=== PATIENT | male | born 1940 | race Caucasian/White ===

== ENCOUNTER → 2016-07-20 | Outpatient (CLI) | payer BC ==
[~2016-07-20] MED LIST: AMR2 PO; CYAN100020 PO; FERR324T PO; GLC/500 PO; Lisinopril PO; Pravastatin PO
[2016-07-20 13:35] LABS: BASO % 0.4 %; BASO ABS # 0.02 K/uL (0-0.2); COMPLETE YES; EOS % 3.5 %; HEMATOCRIT 35.9 % (42-52); IG% 0.2 %; LYMPH ABS # 1.52 K/uL (1.2-3.4); MEAN CELL VOLUME 92.1 fL (80-100); MEAN CORPUSCULAR HGB CONC 33.7 g/dl (32-36); MONO % 8.1 %; NEUT % 59.8 %; PLATELET COUNT 245 K/uL (130-400); WHITE BLOOD COUNT 5.43 K/uL (4.8-10.8)
[2016-07-20 13:58] LABS: BLOOD UREA NITROGEN 19 mg/dl (7-18); GLUCOSE 122 mg/dl (70-99)
[2016-07-20 13:59] LABS: ALT/SGPT 15 U/L (12-78); BUN/CREATININE RATIO 15.5 (10-20); CALCIUM 9.3 mg/dl (8.5-10.1); CARBON DIOXIDE 25 mmol/L (21-32); CHLORIDE 107 mmol/L (98-107); POTASSIUM 4.5 mmol/L (3.5-5.1); SODIUM 141 mmol/L (136-145)
[2016-07-20 14:14] LABS: ESTIMATED AVERAGE GLUCOSE 157 mg/dl; HA1C FLAG Normal (Normal)
[2016-07-20 14:22] LABS: CHOLESTEROL/HDL RATIO 2.2; PROSTATE SPECIFIC ANTIGEN 4.45 ng/ml (0.000-4.000)
[2016-07-20 14:35] LABS: ALB/GLOB RATIO 1.4 (0.9-2); ALKALINE PHOSPHATASE 56 U/L (45-117); AST/SGOT 69 U/L (15-37); IMMUNOGLOBULN M 23.4 mg/dL (40-230)
--- NOTE | 2016-07-24 10:29 | CODING QUERY MEDICAL NECESSITY ---
SUPPORTING DIAGNOSIS NEEDED A supporting diagnosis is required for the test/procedure performed on this patient in order for us to be reimbursed by the patient's insurance. Please provide a supporting diagnosis for the following test/procedure listed below next to the test name along with your signature. *If there is no additional diagnosis for this patient that would support the following test/procedure please document that below next to the test/procedure. Test(s)/Procedure(s) that require a supporting diagnosis: * GLYCATED HEMOGLOBIN DIAGNOSIS: * PSA DIAGNOSIS: * DOS: 07/20/16 Provider Signature: Date: Thank you [facility] Once completed, please kindly fax back to [phone] For questions please call [phone]
[2016-07-24 12:18] LABS: ALBUMIN 4.3 G/DL (3.8-4.8); FREE KAPPA 19.7 MG/L (3.3-19.4); FREE LAMBDA 11.6 MG/L (5.7-26.3); GAMMA GLOBULIN 0.6 G/DL (0.8-1.7); IMMUNOFIXATION IGA SERUM 141 MG/DL (81-463); IMMUNOFIXATION IGG SERUM 646 MG/DL (694-1618); IMMUNOFIXATION IGM SERUM 18 MG/DL (48-271); TOTAL PROTEIN 6.8 G/DL (6.2-8.3)
== END | disposition home or self-care (01) ==
LOC: C.LABBC 09:07
PROVIDERS: ATTEND Nurse Practitioner Family
DX: R05 Cough (principal); D47.2 Monoclonal gammopathy; E11.9 Type 2 diabetes mellitus without complications; C61 Malignant neoplasm of prostate

== ENCOUNTER → 2017-01-04 | Outpatient (CLI) | payer BC ==
[2017-01-04 10:57] LABS: BASO % 0.5 %; BASO ABS # 0.03 K/uL (0-0.2); COMPLETE YES; EOS % 4.4 %; HEMATOCRIT 34.9 % (42-52); IG% 0.2 %; LYMPH % 26.4 %; LYMPH ABS # 1.63 K/uL (1.2-3.4); MEAN CELL VOLUME 91.6 fL (80-100); MEAN CORPUSCULAR HEMOGLOBIN 31.5 pg (25-34); MEAN CORPUSCULAR HGB CONC 34.4 g/dl (32-36); MEAN PLATELET VOLUME 10.5 fL (7.4-10.4); MONO % 8.1 %; NEUT % 60.4 %; PLATELET COUNT 276 K/uL (130-400); RED BLOOD COUNT 3.81 M/uL (4.7-6.1); WHITE BLOOD COUNT 6.17 K/uL (4.8-10.8)
[2017-01-04 11:04] LABS: ALT/SGPT 28 U/L (12-78); AST/SGOT 75 U/L (15-37); BLOOD UREA NITROGEN 25 mg/dl (7-18); BUN/CREATININE RATIO 19.6 (10-20); CALCIUM 9.5 mg/dl (8.5-10.1); CARBON DIOXIDE 27 mmol/L (21-32); CHLORIDE 109 mmol/L (98-107); GLUCOSE 146 mg/dl (70-99); POTASSIUM 4.7 mmol/L (3.5-5.1); SODIUM 141 mmol/L (136-145)
[2017-01-04 11:07] LABS: ALB/GLOB RATIO 1.3 (0.9-2); ALKALINE PHOSPHATASE 67 U/L (45-117)
== END | disposition home or self-care (01) ==
LOC: C.LABBC 08:52
PROVIDERS: ATTEND Internal Medicine
DX: R05 Cough (principal)